=== PATIENT | female | born 1980 | race Caucasian/White ===

== ENCOUNTER 2025-02-05 06:10 | Day surgery (SDC) | payer OTHER, SELFPAY ==
[2025-02-04 11:31] LABS: Hematocrit 42.8 % (37.0-47.0); Hemoglobin 14.2 g/dL (12.0-16.0); Mean Corp Hgb Conc. 33.2 g/dL (33.0-37.0); Mean Corpuscular Volume 88.4 fL (81.0-99.0); Nucleated Red Blood Cells % 0 %; Platelet Count 337 10^3/uL (130-400); Red Cell Dist. Width 13.2 % (11.5-14.5)
[2025-02-04 12:00] LABS: Blood Urea Nitrogen 19 mg/dl (7-17); Calcium 9.8 mg/dl (8.4-10.2); Carbon Dioxide 22 mmol/L (22-30); Chloride 112 mmol/L (98-107); Glucose 110 mg/dl (70-99); Potassium 4.9 mmol/L (3.5-5.1); Sodium 143 mmol/L (135-145); eGFR > 60.00
[2025-02-05 12:47] VITALS: BMI 46.0
[2025-02-05 12:56] VITALS: BP 129/86
[2025-02-05] MEDS: NORMOSOL-R/PLASMALYTE-A 1000 IV (13:27)
[2025-02-05 16:52] VITALS: BP 129/86; BP 141/67
[2025-02-05 17:00] VITALS: BP 149/73
[2025-02-05 17:13] VITALS: BP 139/91
[2025-02-05 17:15] VITALS: BP 139/91
[2025-02-05] MEDS: ROXICODONE 5 MG PO (17:52)
[2025-02-05] MEDS: TYLENOL 650 MG PO (17:52)
[2025-02-05 18:10] VITALS: BP 136/86
== END 2025-02-05 18:50 | disposition home or self-care (01) ==
LOC: SDS 06:10
PROVIDERS: ATTENDING PHYSICIAN Surgery; FAMILY PHYSICIAN Family Medicine
DX: K64.1 Second degree hemorrhoids (principal)
CPT/HCPCS: 46947; 36415; 80048; 85025; 88304; 93005